=== PATIENT | male | born 2000 | race Asian ===

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

== ENCOUNTER 2021-12-20 14:55 | Emergency (ER) | payer OTHER ==
[~2021-12-20] VITALS: Ht 177.8 cm; Wt 68.0 kg
[2021-12-20 15:00] VITALS: TEMP 97.3
[2021-12-20] MEDS ORDERED: CIPR500T PO (16:36)
[2021-12-20 16:48] VITALS: BP 128/88
== END 2021-12-20 16:50 | disposition home or self-care (01) ==
LOC: ED 14:55
DX: N45.1 Epididymitis (principal); N50.812 Left testicular pain
CPT/HCPCS: 81002; 96372; 99283; J0696

== ENCOUNTER 2021-12-23 23:09 | Emergency (ER) | payer OTHER ==
[~2021-12-23] VITALS: Ht 177.8 cm; Wt 68.0 kg
[~2021-12-23 23:09] MED LIST: CIPR500T PO
[2021-12-24 01:30] VITALS: BP 133/80; TEMP 99
== END 2021-12-24 01:30 | disposition home or self-care (01) ==
LOC: ED 23:09
DX: A56.8 Sexually transmitted chlamydial infection of other sites (principal); A54.89 Other gonococcal infections
CPT/HCPCS: 81002; 87490; 87590; 96372; 99283; J0696

== ENCOUNTER 2022-03-10 03:01 | Emergency (ER) | payer OTHER ==
[~2022-03-10] VITALS: Ht 177.8 cm; Wt 61.2 kg
[2022-03-10] MEDS ORDERED: 904272561 PO (04:01)
[2022-03-10 04:13] VITALS: BP 128/71; TEMP 98.4
== END 2022-03-10 04:15 | disposition home or self-care (01) ==
LOC: ED 03:01
DX: L02.811 Cutaneous abscess of head [any part, except face] (principal)
CPT/HCPCS: 96372; 99283; J0696

== ENCOUNTER 2022-03-19 20:28 | Emergency (ER) | payer OTHER ==
[~2022-03-19] VITALS: Ht 177.8 cm; Wt 61.2 kg
[~2022-03-19 20:28] MED LIST changes: +904272561 PO
[2022-03-19 21:35] VITALS: BP 126/82; TEMP 98.5
== END 2022-03-19 21:35 | disposition home or self-care (01) ==
LOC: ED 20:28
DX: N45.1 Epididymitis (principal)
CPT/HCPCS: 81002; 96372; 99283; J0696

== ENCOUNTER 2022-09-15 01:34 | Emergency (ER) | payer OTHER ==
[~2022-09-15] VITALS: Ht 177.8 cm; Wt 59.0 kg
[2022-09-15 01:38] VITALS: TEMP 98.9
[2022-09-15 02:16] LABS: PLATELET COUNT 224 K/uL (142-355)
[2022-09-15 02:58] VITALS: BP 127/73
== END 2022-09-15 02:58 | disposition home or self-care (01) ==
LOC: ED 01:34
PROVIDERS: Family Medicine
DX: J32.8 Other chronic sinusitis (principal); R05.8 Other specified cough; R51.9 Headache, unspecified; S29.011A Strain of muscle and tendon of front wall of thorax, initial encounter; M94.0 Chondrocostal junction syndrome [Tietze]; X58.XXXA Exposure to other specified factors, initial encounter; Y92.89 Other specified places as the place of occurrence of the external cause; Z20.822 Contact with and (suspected) exposure to COVID-19
CPT/HCPCS: 36415; 85027; 87502; 87635; 94664; 96372; 99283; J1885; J2930; U0003

== ENCOUNTER 2023-01-17 23:00 | Emergency (ER) | payer OTHER ==
[~2023-01-17] VITALS: Ht 177.8 cm; Wt 59.0 kg
[2023-01-18 01:50] VITALS: BP 116/58; TEMP 99
== END 2023-01-18 01:50 | disposition home or self-care (01) ==
LOC: ED 23:00
DX: U07.1 COVID-19 (principal); J02.0 Streptococcal pharyngitis
CPT/HCPCS: 87502; 87635; 87651; 96372; 99283; J1100; U0003

== ENCOUNTER 2023-02-17 21:17 | Emergency (ER) | payer OTHER ==
[~2023-02-17] VITALS: Ht 177.8 cm; Wt 59.0 kg
[2023-02-17 21:20] VITALS: BP 130/79; TEMP 97.6
== END 2023-02-17 22:40 | disposition left against medical advice (07) ==
LOC: ED 21:17
DX: L72.0 Epidermal cyst (principal)
CPT/HCPCS: 99281